=== PATIENT | male | born 1955 | race Caucasian/White ===

== ENCOUNTER 2019-08-15 11:00 | Emergency (ER) | payer BC ==
[2019-08-15] MEDS ORDERED: ALBUTEROL 2.5 MG/3 ML NEB SOL ONE (12:11)
[2019-08-15] MEDS ORDERED: IPRATROPIUM BROM 0.5MG/2.5ML ONE (12:11)
--- NOTE | 2019-08-15 12:19 | RAD REPORT ---
EXAM DESCRIPTION: RAD - Chest Pa And Lat (2 Views) - 08/15/2019 11:32 am CLINICAL HISTORY: Congestion;Cough COMPARISON: May 21, 2018 TECHNIQUE: PA and lateral views of the chest were obtained. FINDINGS: The lungs are clear of a focal mass or consolidation. Patient has a baseline prominent int erstitial lung pattern. That pattern is increased on the current study. Heart size is normal and ce ntral vasculature is within normal limits. No pleural effusion or pneumothorax seen. No acute bony finding noted. No aortic abnormality. IMPRESSION: Prominent interstitial pattern throughout the lung srinivasan worse in each lung base. Patte rn is more pronounced than the May 2018 study. In the acute clinical setting, interstitial edema and infiltrate would be favored over progressive fi brosis. No focal consolidations seen to localize a bacterial pneumonia.
[2019-08-15] MEDS ORDERED: HYDROCODONE/CHLORPHEN 5 ML/OSYR ONE (13:17)
[2019-08-15] MEDS ORDERED: predniSONE 20 MG TAB ONE (13:18)
--- NOTE | 2019-08-15 13:20 | ER ---
Nurse's Notes [facility] Name: Lukasz Lal Age: 64 yrs Sex: Male : 1955 Arrival Date: 08/15/2019 Time: 11:01 Bed 25 Private MD: Diagnosis: Acute bronchitis Presentation: 08/15 11:09 Presenting complaint: Patient states: has been having a cough and sinus congestion for sv a few weeks, saw urgent care and prescribed meds but yesterday started with a productive yellow cough and not getting any better. Transition of care: patient was not received from another setting of care. Onset of symptoms was July 2019. Risk Assessment: Do you want to hurt yourself or someone else? Patient reports no desire to harm self or others. 11:09 Method Of Arrival: Ambulatory sv 11:09 Acuity: MARIANA 3 sv 11:12 Initial Sepsis Screen: Does the patient meet any 2 criteria? Temp <36.0*C (96.8*F)) or sv > 38.3*C (100.9*F). No. Patient's initial sepsis screen is negative. Does the patient have a suspected source of infection? Yes: Productive cough/pneumonia. Triage Assessment: 11:09 General: Appears in no apparent distress. uncomfortable, Behavior is calm, cooperative, sv appropriate for age. EENT: Reports sinus congestion. Neuro: Level of Consciousness is awake, alert, obeys commands, Gait is steady. Respiratory: Reports cough that is productive, Respiratory effort is even, unlabored, Respiratory pattern is regular, symmetrical. Derm: Skin is normal. Historical: - Allergies: 11:10 No Known Allergies; sv - PMHx: 11:10 Hypertension; sv - PSHx: 11:10 None; sv - Immunization history:: Flu vaccine is up to date. - Social history:: Smoking status: Patient uses tobacco products, smokes one pack cigarettes per day. - Ebola Screening: : No symptoms or risks identified at this time. Screenin:13 Abuse screen: Denies threats or abuse. Nutritional screening: No deficits noted. sr5 Tuberculosis screening: No symptoms or risk factors identified. Fall Risk None identified. Assessment: 12:13 General: Appears in no apparent distress. Behavior is calm, cooperative. Pain: Denies sr5 pain. Neuro: Level of Consciousness is awake, alert, obeys commands, Oriented to person, place, time, situation, Gait is steady. Cardiovascular: Patient's skin is warm and dry. Respiratory: Reports cough that is productive, Respiratory effort is even, unlabored, Respiratory pattern is regular, symmetrical, Breath sounds are clear bilaterally. GI: No signs and/or symptoms were reported involving the gastrointestinal system. : No signs and/or symptoms were reported regarding the genitourinary system. EENT: No signs and/or symptoms were reported regarding the EENT system. Derm: No signs and/or symptoms reported regarding the dermatologic system. Musculoskeletal: No signs and/or symptoms reported regarding the musculoskeletal system. 12:32 Reassessment: Following completion of neb treatment, nonproductive cough, persistent sr5 noted. SPO2 99% room air, HR 80, skin warm/dry/nc. 13:33 Reassessment: Patient is alert, oriented x 3, equal unlabored respirations, skin sr5 warm/dry/pink. Patient states symptoms have improved. Vital Signs: 11:10 BP 113 / 64; Pulse 74; Resp 20; Temp 96.4(O); Pulse Ox 98% ; Weight 77.11 kg; Height 5 sv ft. 7 in. (170.18 cm); 12:32 Pulse 80; Resp 20; Pulse Ox 99% ; sr5 12:54 Pulse 75; Resp 18; Pulse Ox 99% on R/A; sr5 13:21 Pulse 79; Pulse Ox 100% ; sr5 11:10 Body Mass Index 26.63 (77.11 kg, 170.18 cm) sv 13:21 cough has subsided sr5 ED Course: 11:01 Patient arrived in ED. as 11:10 Triage completed. sv 11:11 Arm band placed on. sv 11:38 Chest Pa And Lat (2 Views) XRAY In Process Unspecified. EDMS 11:49 Sneha Sotomayor FNP-C is [facility]. kb 11:49 Blaze Alcantar MD is Attending Physician. kb 12:06 Lui Lainez, RN is Primary Nurse. sr5 12:13 Patient has correct armband on for positive identification. Bed in low position. Call sr5 light in reach. Pulse ox on. NIBP on. 13:33 No provider procedures requiring assistance completed. Patient did not have IV access sr5 during this emergency room visit. Administered Medications: 12:12 Drug: AtroVENT Aerosol 0.5 mg Route: Inhalation; sr5 12:31 Follow up: Response: Other; Other: nonproductive cough noted, persistent sr5 12:13 Drug: Albuterol 2.5 mg Route: Inhalation; sr5 12:32 Follow up: Response: Nonproductive cough noted, persistent sr5 13:21 Drug: Tussionex Pennkinetic ER 5 ml Route: PO; sr5 13:34 Follow up: Response: cough suppressed at this time sr5 13:21 Drug: predniSONE 40 mg Route: PO; sr5 13:34 Follow up: Response: No adverse reaction sr5 Outcome: 13:19 Discharge ordered by MD. alexander 13:33 Patient left the ED. sr5 13:33 Discharged to home ambulatory, with family. sr5 13:33 Condition: good 13:33 Discharge instructions given to patient, Instructed on discharge instructions, follow up and referral plans. medication usage, Demonstrated understanding of instructions, follow-up care, medications, Prescriptions given X 3. Signatures: Dispatcher [employer] EDMS Sneha Sotmoayor, TERESA-C TERESA-Diandra Santos, RN RN Giana Gallardo Sam, RN RN sr5 Corrections: (The following items were deleted from the chart) 11:11 11:10 BP 113 / 64; Pulse 74bpm; Resp 20bpm; Pulse Ox 98%; 77.11 kg; Height 5 ft. 7 in.; sv BMI: 26.6; sv
--- NOTE | 2019-08-15 13:21 | EDPHYS ---
Physician Documentation [facility] Name: Lukasz Lal Age: 64 yrs Sex: Male : 1955 Arrival Date: 08/15/2019 Time: 11:01 Bed 25 Private MD: ED Physician Blaze Alcantar HPI: 08/15 13:15 This 64 yrs old Male presents to ER via Ambulatory with complaints of Cough, kb Sinus Congestion. 13:15 The patient or guardian reports cough, that is intermittent, described as moderate, kb with no sputum. Onset: The symptoms/episode began/occurred 7 day(s) ago. Severity of symptoms: At their worst the symptoms were moderate, in the emergency department the symptoms are unchanged. Modifying factors: The symptoms are alleviated by nothing, the symptoms are aggravated by nothing. Associated signs and symptoms: Pertinent positives: rhinorrhea, sore throat, Pertinent negatives: chest pain, diarrhea, ear ache, fever, nausea, vomiting. The patient has not experienced similar symptoms in the past. The patient has been recently seen at an urgent care. Pt reports he started having a runny nose and sore throat on 08/08/19 and it has moved into his chest and caused a cough since then. Reports he was seen at Urgent care on Monday and given guaifenesin with codeine and zithromax, but his cough hasn't gotten better. Pt normally smokes a pack a day, but has not been diagnosed with COPD. Reports he has only been smoking 1/2 a pack to a pack a day since he got sick. Historical: - Allergies: 11:10 No Known Allergies; sv - PMHx: 11:10 Hypertension; sv - PSHx: 11:10 None; sv - Immunization history:: Flu vaccine is up to date. - Social history:: Smoking status: Patient uses tobacco products, smokes one pack cigarettes per day. - Ebola Screening: : No symptoms or risks identified at this time. ROS: 13:08 Constitutional: Negative for fever, chills, and weight loss, Neck: Negative for injury, kb pain, and swelling, Cardiovascular: Negative for chest pain, palpitations, and edema, Abdomen/GI: Negative for abdominal pain, nausea, vomiting, diarrhea, and constipation, Back: Negative for injury and pain, : Negative for injury, bleeding, discharge, and swelling, MS/Extremity: Negative for injury and deformity, Skin: Negative for injury, rash, and discoloration, Neuro: Negative for headache, weakness, numbness, tingling, and seizure. 13:08 ENT: Positive for rhinorrhea, sore throat. 13:08 Respiratory: Positive for cough, with no reported sputum. Exam: 13:07 Constitutional: This is a well developed, well nourished patient who is awake, alert, kb and in no acute distress. Head/Face: Normocephalic, atraumatic. ENT: Nares patent. No nasal discharge, no septal abnormalities noted. Tympanic membranes are normal and external auditory canals are clear. Oropharynx with no redness, swelling, or masses, exudates, or evidence of obstruction, uvula midline. Mucous membranes moist. Neck: Trachea midline, no thyromegaly or masses palpated, and no cervical lymphadenopathy. Supple, full range of motion without nuchal rigidity, or vertebral point tenderness. No Meningismus. Chest/axilla: Normal chest wall appearance and motion. Nontender with no deformity. No lesions are appreciated. Cardiovascular: Regular rate and rhythm with a normal S1 and S2. No gallops, murmurs, or rubs. Normal PMI, no JVD. No pulse deficits. Respiratory: Lungs have equal breath sounds bilaterally, clear to auscultation and percussion. No rales, rhonchi or wheezes noted. No increased work of breathing, no retractions or nasal flaring. Abdomen/GI: Soft, non-tender, with normal bowel sounds. No distension or tympany. No guarding or rebound. No evidence of tenderness throughout. Skin: Warm, dry with normal turgor. Normal color with no rashes, no lesions, and no evidence of cellulitis. MS/ Extremity: Pulses equal, no cyanosis. Neurovascular intact. Full, normal range of motion. Neuro: Awake and alert, GCS 15, oriented to person, place, time, and situation. Cranial nerves II-XII grossly intact. Motor strength 5/5 in all extremities. Sensory grossly intact. Cerebellar exam normal. Normal gait. Vital Signs: 11:10 BP 113 / 64; Pulse 74; Resp 20; Temp 96.4(O); Pulse Ox 98% ; Weight 77.11 kg; Height 5 sv ft. 7 in. (170.18 cm); 12:32 Pulse 80; Resp 20; Pulse Ox 99% ; sr5 12:54 Pulse 75; Resp 18; Pulse Ox 99% on R/A; sr5 13:21 Pulse 79; Pulse Ox 100% ; sr5 11:10 Body Mass Index 26.63 (77.11 kg, 170.18 cm) sv 13:21 cough has subsided sr5 MDM: 11:50 Patient medically screened. kb 13:09 Data reviewed: vital signs, nurses notes. Data interpreted: Pulse oximetry: on room air kb is 99 %. Interpretation: normal. Counseling: I had a detailed discussion with the patient and/or guardian regarding: the historical points, exam findings, and any diagnostic results supporting the discharge/admit diagnosis, lab results, the need for outpatient follow up, a family practitioner, to return to the emergency department if symptoms worsen or persist or if there are any questions or concerns that arise at home. ED course: Pt is upset that there is nothing more to do for his cough. I informed pt that a cough from bronchitis can last for 3 weeks or more, but there is no evidence of a bacterial infection that would require more antibiotics. I offered an inhaler and pt refused, but accepted the prescription once I told him the inhaler would be similar to the neb treatment he received. I also offered tessalon perles but pt states he has a whole bottle at home and they don't do anything. He also has guaifenesin with codeine at home for the cough that was prescribed on Monday. Pt wants something else for the cough. Will give tussionex here, but informed pt that we were unable to prescribe it and to follow up with Dr Bermeo for possible prescription if it works. Will also prescribe short course of steroids that could help the bronchitis. Pt will finish zithromax previously prescribed.. 08/15 11:12 Order name: Chest Pa And Lat (2 Views) XRAY; Complete Time: 12:27 sv Administered Medications: 12:12 Drug: AtroVENT Aerosol 0.5 mg Route: Inhalation; sr5 12:31 Follow up: Response: Other; Other: nonproductive cough noted, persistent sr5 12:13 Drug: Albuterol 2.5 mg Route: Inhalation; sr5 12:32 Follow up: Response: Nonproductive cough noted, persistent sr5 13:21 Drug: Tussionex Pennkinetic ER 5 ml Route: PO; sr5 13:34 Follow up: Response: cough suppressed at this time sr5 13:21 Drug: predniSONE 40 mg Route: PO; sr5 13:34 Follow up: Response: No adverse reaction sr5 Disposition: 16:31 Co-signature as Attending Physician, Blaze Alcantar MD I agree with the assessment and kdr plan of care. Disposition: 08/15/19 13:19 Discharged to Home. Impression: Acute bronchitis. - Condition is Stable. - Discharge Instructions: Acute Bronchitis, [id number]. - Prescriptions for Prednisone 20 mg Oral Tablet - take 1 tablet by ORAL route once daily for 5 days; 5 tablet. Albuterol Sulfate 90 mcg/actuation - inhale 1-2 puff by INHALATION route every 4-6 hours; 1 Inhaler. Bromfed DM 2- 30-10 mg/5 mL Oral syrup - take 10 milliliter by ORAL route every 4 hours; 200 milliliter. - Medication Reconciliation Form, Thank You Letter, Antibiotic Education, Prescription Opioid Use form. - Follow up: Emergency Department; When: As needed; Reason: Worsening of condition. Follow up: Private Physician; When: 2 - 3 days; Reason: Recheck today's complaints, Continuance of care, Re-evaluation by your physician. Signatures: Dispatcher [employer] EDNE Sneha Sotomayor FNP-C FNP-Ckb Verde, Stephanie, RN Blaze Keith MD MD [facility] Lui Lainez RN RN sr5 Corrections: (The following items were deleted from the chart) 13:19 13:15 Pt reports he started having a runny nose and sore throat on 08/08/19 and it has kb moved into his chest and caused a cough since then. Reports he was seen at Urgent care on Monday and given guaifenesin with codeine and zithromax, but his cough hasn't gotten better. . kb 13:33 13:19 08/15/2019 13:19 Discharged to Home. Impression: Acute bronchitis. Condition is sr5 Stable. Forms are Medication Reconciliation Form, Thank You Letter, Antibiotic Education, Prescription Opioid Use. Follow up: Emergency Department; When: As needed; Reason: Worsening of condition. Follow up: Private Physician; When: 2 - 3 days; Reason: Recheck today's complaints, Continuance of care, Re-evaluation by your physician. kb
[2019-08-15 13:41] VITALS: BP 113/64; TEMP 96.4
[2019-08-15 13:45] VITALS: O2SAT 100
== END 2019-08-15 13:33 | disposition home or self-care (01) ==
LOC: ER 11:00
DX: J20.9 Acute bronchitis, unspecified (principal); F17.210 Nicotine dependence, cigarettes, uncomplicated; I10 Essential (primary) hypertension
CPT/HCPCS: 71046; 99284; J7512

== ENCOUNTER 2020-09-11 10:45 | Emergency (ER) | payer BC ==
[2020-09-11 13:48] LABS: BUN Blood Urea Nitrogen 10 mg/dL (7-18); Bicarbonate 30 mmol/L (21-32); Glucose Level 116 mg/dL (74-106); Potassium 3.9 mmol/L (3.5-5.1); Sodium Level 136 mmol/L (136-145)
[2020-09-11 14:20] LABS: SARS-COV-2 RT PCR NEGATIVE (NEGATIVE)
--- NOTE | 2020-09-11 14:56 | RAD REPORT ---
EXAM DESCRIPTION: CT - Thorax W/ Con CLINICAL HISTORY: Chest pain cough, pneumonia COMPARISON: Chest Pa And Lat (2 Views) dated 09/07/2020; Chest Pa And Lat (2 Views) dated 08/15/2019; C hest Pa And Lat (2 Views) dated 08/26/2020 FINDINGS: Moderate diffuse COPD is present. Small areas of nodularity are seen along the left major fissure. There is an irregular mass noted in the left lung base laterally measuring 3.4 x 3.4 cm. A s maller adjacent satellite nodule is seen anteriorly measuring 14 x 8 mm. Several small nodules are al so seen along the periphery of the superior segment right lower lobe, largest measuring 8 mm. Trace r ight pleural fluid is present. Enlarged lymphadenopathy is present in the left hilum, the largest measuring 3.0 x 2.1 cm. A few uppe r limit of normal mediastinal nodes are also seen. No concerning bony finding. Subtle areas of nodularity are seen in both adrenal glands. All CT scans are performed using dose optimization technique as appropriate and may include automated exposure control or mA/KV adjustment according to patient size. IMPRESSION: 3.4 cm mass in the left lung base laterally is most compatible with lung carcinoma.Enlar ged left hilar lymph node is seen measuring 3 cm, likely metastatic.
--- NOTE | 2020-09-11 15:17 | EDPHYS ---
Physician Documentation [facility] Name: Lukasz Lal Age: 65 yrs Sex: Male : 1955 Arrival Date: 09/11/2020 Time: 11:02 Bed 16 Private MD: ED Physician Blaze Alcantar HPI: 09/11 16:36 This 65 yrs old Male presents to ER via Ambulatory with complaints of kb Pneumonia. 16:36 The patient or guardian reports cough, that is intermittent, described as mild. Onset: kb The symptoms/episode began/occurred 2 week(s) ago. Severity of symptoms: At their worst the symptoms were moderate, in the emergency department the symptoms are unchanged. Modifying factors: The symptoms are alleviated by nothing, the symptoms are aggravated by nothing. Associated signs and symptoms: Pertinent positives: chest pain, with cough, with movement, Pertinent negatives: diarrhea, ear ache, fever, nausea, rhinorrhea, sore throat, vomiting. The patient has not experienced similar symptoms in the past. The patient has not recently seen a physician. Pt reports pain to chest that started 2 weeks ago. Pain worse with movement. States he went to Dr Yan first to make sure it wasn't his heart, had multiple tests done, was cleared for cardiac issues, but x-ray showed pneumonia so he was put on Levaquin 500mg for 7 days. States symptoms didn't get any better so he went to his PCP (Dr Bermeo) and had another x-ray that still showed the pneumonia. Was put on Levaquin 750mg for 5 days. States he still isn't any better so he came here. . Historical: - Allergies: 11:27 No Known Allergies; ll1 - PMHx: 11: Hypertension; ll1 - PSHx: 11:27 None; ll1 - Immunization history:: Flu vaccine is not up to date. - Social history:: Smoking status: Patient denies any tobacco usage or history of. ROS: 16:32 Abdomen/GI: Negative for abdominal pain, nausea, vomiting, diarrhea, and constipation, kb MS/Extremity: Negative for injury and deformity, Skin: Negative for injury, rash, and discoloration, Neuro: Negative for headache, weakness, numbness, tingling, and seizure. 16:32 Constitutional: Positive for body aches. 16:32 Respiratory: Positive for cough. 16:34 Cardiovascular: Positive for chest pain, with movement, of the right breast. kb Exam: 16:36 Constitutional: This is a well developed, well nourished patient who is awake, alert, kb and in no acute distress. Head/Face: Normocephalic, atraumatic. Chest/axilla: Normal chest wall appearance and motion. Nontender with no deformity. No lesions are appreciated. Cardiovascular: Regular rate and rhythm with a normal S1 and S2. No gallops, murmurs, or rubs. Normal PMI, no JVD. No pulse deficits. Respiratory: Lungs have equal breath sounds bilaterally, clear to auscultation and percussion. No rales, rhonchi or wheezes noted. No increased work of breathing, no retractions or nasal flaring. Abdomen/GI: Soft, non-tender, with normal bowel sounds. No distension or tympany. No guarding or rebound. No evidence of tenderness throughout. Skin: Warm, dry with normal turgor. Normal color with no rashes, no lesions, and no evidence of cellulitis. MS/ Extremity: Pulses equal, no cyanosis. Neurovascular intact. Full, normal range of motion. Neuro: Awake and alert, GCS 15, oriented to person, place, time, and situation. Cranial nerves II-XII grossly intact. Motor strength 5/5 in all extremities. Sensory grossly intact. Cerebellar exam normal. Normal gait. Vital Signs: 11:27 BP 165 / 93; Pulse 77; Resp 17; Temp 98.1; Pulse Ox 96% on R/A; Weight 74.84 kg; Height ll1 5 ft. 7 in. (170.18 cm); Pain 10/10; 11:27 Body Mass Index 25.84 (74.84 kg, 170.18 cm) ll1 MDM: 12:59 Patient medically screened. kb 16:34 Data reviewed: vital signs, nurses notes. Data interpreted: Pulse oximetry: on room air kb is 96 %. Interpretation: normal. Counseling: I had a detailed discussion with the patient and/or guardian regarding: the historical points, exam findings, and any diagnostic results supporting the discharge/admit diagnosis, lab results, radiology results, the need for outpatient follow up, a senior trial attorney, to return to the emergency department if symptoms worsen or persist or if there are any questions or concerns that arise at home. 09/11 13:16 Order name: Basic Metabolic Panel kb 09/11 13:16 Order name: Flu kb 09/11 13:16 Order name: Basic Metabolic Panel; Complete Time: 14:07 EDMS 09/11 13:16 Order name: IV Start; Complete Time: 13:41 kb 09/11 13:16 Order name: CT Chest W/ Con; Complete Time: 15:01 kb 09/11 14:21 Order name: COVID-19/FLU A+B; Complete Time: 14:29 EDMS Administered Medications: No medications were administered Disposition: 18:49 Co-signature as Attending Physician, Blaze Alcantar MD I agree with the assessment and kdr plan of care. Disposition: 09/11/20 15:16 Discharged to Home. Impression: 3.4cm mass left lung. - Condition is Stable. - Discharge Instructions: Lung Cancer. - Prescriptions for Tylenol- Codeine #3 300-30 mg Oral Tablet - take 2 tablet by ORAL route every 6 hours As needed; 16 tablet. Diclofenac Sodium 75 mg Oral Tablet, Delayed Release (E.C.) - take 1 tablet by ORAL route 2 times per day As needed; 30 tablet. - Medication Reconciliation Form, Thank You Letter, Antibiotic Education, Prescription Opioid Use form. - Follow up: Emergency Department; When: As needed; Reason: Worsening of condition. Follow up: Private Physician; When: 2 - 3 days; Reason: Recheck today's complaints, Continuance of care, Re-evaluation by your physician. Signatures: Dispatcher [employer] EDCT Sneha Sotomayor, RIM TECHNICIAN-C RIM TECHNICIAN-Ckb Blaze Alcantar MD MD [facility] Luly Jiang, WESLEY RN iw Pepper Jackson RN RN ll1 Corrections: (The following items were deleted from the chart) 13:30 12:22 Chest Pa And Lat (2 Views)+[email or web address].[email or web address] ordered. [facility] EDCT 13:42 13:16 Influenza Screen (A ordered. [facility] EDCT 13:42 13:16 CORONAVIRUS ordered. [facility] EDCT 15:29 15:16 09/11/2020 15:16 Discharged to Home. Impression: 3.4cm mass left lung. Condition iw is Stable. Forms are Medication Reconciliation Form, Thank You Letter, Antibiotic Education, Prescription Opioid Use. Follow up: Emergency Department; When: As needed; Reason: Worsening of condition. Follow up: Private Physician; When: 2 - 3 days; Reason: Recheck today's complaints, Continuance of care, Re-evaluation by your physician. kb 16:34 16:32 Cardiovascular: Negative for chest pain, palpitations, and edema, Abdomen/GI: kb Negative for abdominal pain, nausea, vomiting, diarrhea, and constipation, MS/Extremity: Negative for injury and deformity, Skin: Negative for injury, rash, and discoloration, Neuro: Negative for headache, weakness, numbness, tingling, and seizure, kb
--- NOTE | 2020-09-11 15:17 | ER ---
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 ll1 Took 7 day course of antibiotics, then 5 day dosage after. Cough never got better. No N/V/D. Lower lung pains with cough, chills. Coronavirus screen: Client denies travel out of the [place] in the last 14 days. chills, cough unrelated to allergies, fatigue, muscle pain, shaking with chills, Client presents with at least one sign or symptom that may indicate coronavirus-19. Standard/surgical mask placed on the client. Ebola Screen: Patient denies travel to an Ebola-affected area in the 21 days before illness onset. Initial Sepsis Screen: Does the patient meet any 2 criteria? No. Patient's initial sepsis screen is negative. Does the patient have a suspected source of infection? Yes: Productive cough/pneumonia. Risk Assessment: Do you want to hurt yourself or someone else? Patient reports no desire to harm self or others. Onset of symptoms was August 22, 2020. 11:27 Method Of Arrival: Ambulatory [facility] 11:27 Acuity: MARIANA 3 ll1 Historical: - Allergies: 11:27 No Known Allergies; ll1 - PMHx: 11:27 Hypertension; ll1 - PSHx: 11:27 None; ll1 - Immunization history:: Flu vaccine is not up to date. - Social history:: Smoking status: Patient denies any tobacco usage or history of. Screenin:10 Abuse screen: Denies threats or abuse. Nutritional screening: No deficits noted. em Tuberculosis screening: No symptoms or risk factors identified. Fall Risk None identified. Assessment: 13:10 General: Appears in no apparent distress. comfortable, Behavior is calm, cooperative, em appropriate for age, Denies fever. Pain: Complains of pain in chest Pain currently is 10 out of 10 on a pain scale. Neuro: Level of Consciousness is awake, alert, obeys commands, Oriented to person, place, time, situation, Appropriate for age. Cardiovascular: Capillary refill < 3 seconds Patient's skin is warm and dry. Respiratory: Reports cough that is productive, Airway is patent Respiratory effort is even, unlabored, Respiratory pattern is regular, symmetrical. Derm: Skin is intact, Skin is pink, warm \T\ dry. Musculoskeletal: Range of motion: intact in all extremities. 14:55 Reassessment: Patient appears in no apparent distress at this time. Patient and/or iw family updated on plan of care and expected duration. Pain level reassessed. Patient is alert, oriented x 3, equal unlabored respirations, skin warm/dry/pink. Vital Signs: 11:27 BP 165 / 93; Pulse 77; Resp 17; Temp 98.1; Pulse Ox 96% on R/A; Weight 74.84 kg; Height ll1 5 ft. 7 in. (170.18 cm); Pain 10/10; 11:27 Body Mass Index 25.84 (74.84 kg, 170.18 cm) ll1 ED Course: 11:02 Patient arrived in ED. ds1 11:26 Arm band placed on. ll1 11:30 Triage completed. ll1 12:59 Sneha Sotomayor FNP-C is [facility]. kb 12:59 Blaze Alcantar MD is Attending Physician. kb 13:10 Patient has correct armband on for positive identification. Bed in low position. Call em light in reach. Side rails up X2. Pulse ox on. NIBP on. 13:20 Inserted saline lock: 20 gauge in right antecubital area, using aseptic technique. em Blood collected. 13:38 Luly Jiang, RN is Primary Nurse. iw 14:30 CT Chest W/ Con In Process Unspecified. EDMS 15:28 No provider procedures requiring assistance completed. IV discontinued, intact, iw bleeding controlled, No redness/swelling at site. Pressure dressing applied. Administered Medications: No medications were administered Outcome: 15:16 Discharge ordered by . kb 15:28 Discharged to home ambulatory. iw 15:28 Condition: good 15:28 Discharge instructions given to patient, Instructed on discharge instructions, follow up and referral plans. medication usage, Demonstrated understanding of instructions, follow-up care, medications, Prescriptions given X 1. 15:29 Patient left the ED. iw Signatures: Dispatcher [employer] EDMS Sneha Sotomayor FNP-C COMMANDING OFFICER [employer] Mo Varela, RN RN vivek Carrera, Carmita ds1 Luly Jiang, RN RN Pepper Araujo RN RN ll1
[2020-09-11 16:02] VITALS: BP 165/93; TEMP 98.1; O2SAT 96
== END 2020-09-11 15:29 | disposition home or self-care (01) ==
LOC: ER 10:45
DX: R91.8 Other nonspecific abnormal finding of lung field (principal); Z20.822 Contact with and (suspected) exposure to COVID-19
CPT/HCPCS: 80048; 36415; 0240U; 71260; 99284; Q9967